=== PATIENT | male | born 1955 | race Caucasian/White ===

== ENCOUNTER 2016-11-05 14:39 | Emergency (ER) | payer MEDICAID, OTHER ==
[2016-11-05] MEDS ORDERED: FAMOTIDINE 20 MG TABLET PO ONE (15:10)
[2016-11-05] MEDS ORDERED: ASPIRIN 81 MG TAB.CHEW PO ONE (15:10)
[2016-11-05 15:34] LABS: Hematocrit 33.7 % (42.0-52.0); Hemoglobin 11.7 gm/dL (13.5-18.0); Mean Cell Volume 93.1 fl (78-100); Mean Corpuscular Hemoglobin 32.3 pg (27-31); Mean Corpuscular Hgb Conc 34.7 g/dl (32-36); Mean Platelet Volume 8.9 fl (6.0-9.5); Neutrophil # 6.6 K/mm3 (1.3-6.0); Neutrophil % 76.4 % (42-75.0); Platelet Count 297 K/mm3 (150-450); Red Blood Count 3.62 M/mm3 (4.7-6.0); Red Cell Distribution Width 11.9 % (11.5-14.0); White Blood Count 8.6 K/mm3 (4.0-10.5)
[2016-11-05 15:40] LABS: INR 0.97 INR (0.90-1.10); Partial Thrombolplastin Time 29.8 Seconds (24-32); Prothrombin Time (Patient) 10.1 Seconds (9.4-11.4)
[2016-11-05 15:47] LABS: ALT 45 U/L (19-67); AST 29 U/L (0-48); Albumin * 3.9 gm/dl (3.4-5.0); Alkaline Phosphatase * 73 U/L (50-170); Anion Gap 15.5 mmol/L (6.8-13.8); BUN/Creatinine Ratio 9.1 (9.0-21.6); Bilirubin, Total 0.7 mg/dL (0.0-1.1); Blood Urea Nitrogen 12 mg/dL (6-23); Ca. Corrected For Albumin 8.6 mg/dL (8.4-10.2); Calcium * 8.8 mg/dL (7.9-10.9); Carbon Dioxide 23.7 mmol/L (24-32.6); Chloride 94 mmol/L (97-106); Glucose * 97 mg/dL (70-110); Potassium 4.2 mmol/L (3.4-4.6); Sodium 129 mmol/L (132-142); Total Protein 7.4 gm/dL (6.2-8.2)
[2016-11-05] MEDS ORDERED: ASPIRIN 81 MG TAB.CHEW ONE (15:47)
[2016-11-05] MEDS ORDERED: FAMOTIDINE 20 MG TABLET ONE (15:47)
--- NOTE | 2016-11-05 15:47 | ERNOTE ---
Chest Pain/Cardiac HPI Date of Service: 11/05/16 Chief Complaint: Chest Pain Time Seen by Provider: 11/05/16 15:05 Source: patient Exam Limitations: no limitations Immunizations: IMMUNIZATION HX Immunizations Up to Date Yes History of Influenza Vaccine No Hx Pneumococcal Vaccination No Allergies/Adverse Reactions: Allergies No Known Allergies Allergy (Unverified 08/20/16 06:43) Home Medications: HOME MEDICATIONS Metoprolol Tartrate [Lopressor] 25 mg PO BID #60 tab 07/13/16 [Last Taken 06:00] Aspirin [Aspirin Enteric Coated] 650 mg PO Q6H PRN 08/06/16 [Last Taken Unknown] oxyCODONE HCL/ACETAMINOPHEN [Percocet 5 MG/325 MG] 1 - 2 tab PO Q4H PRN [Last Taken Unknown] Atenolol [Tenormin] 100 mg PO DAILY 08/20/16 [Last Taken 08/20/16 06:00] Omeprazole 40 mg PO DAILY #20 capsule. 11/05/16 [Last Taken Unknown] Narrative: Patient comes due to upper abdominal pain, L Flank pain, and chest pain. Timing: intermittent Severity/Quality: moderate Location: central, epigastric Chest Pain Radiation: neck, back Activities at Onset: none Modifying Factors - Improves: Present: nothing Modifying Factors - Worsens: Present: nothing Nitro Today/Relief: no nitro taken today Aspirin Treatment Today: no aspirin today Associated Symptoms: Present: abdominal pain. Absent: headache, dizziness, syncope, cough, shortness of breath, diaphoresis, fever/chills, palpitations, heartburn, nausea, vomiting, weakness, back pain, swelling/lump in chest Prior Chest Pain/Cardiac Workup: Denies: prior chest pain, no prior cardiac workup, non-cardiac, angina, heart attack, cardiac cath, echocardiogram, stress test Prior Treatment: Reports: recently seen Review of Systems - Review of Systems Constitutional: Absent: fever, chills, diaphoresis EYE: Present: no symptoms reported ENT: Present: no symptoms reported Respiratory: Absent: shortness of breath, cough, orthopnea Cardiology: Present: chest pain - mid chest area. The pain radiates to neck. Absent: palpitations, syncope Gastrointestinal/Abdominal: Present: abdominal pain - Upper abdomen area. Absent: nausea, vomiting, diarrhea, constipation Genitourinary: Absent: frequency, pain, dysuria, hematuria Musculoskeletal: Present: no symptoms reported Skin: Present: no symptoms reported Neurological: Present: no symptoms reported Endocrine: Present: no symptoms reported Hematologic/Lymphatic: Present: no symptoms reported Psych: Present: no symptoms reported - Patient's Past Medical History Patient History - Medical: No pertinent hx Patient History - Cancer: Melanoma Patient History - Surgical Procedures: Other - Family History Mother Family History - Medical: , No pertinent hx Family History - Cardiac/Respiratory: No pertinent hx - Social History Living Situations: alone Smoking Status: Never smoker Patient requests Smoking Cessation Consult: No Initiate information on Smoking Cessation: No Alcohol Use: heavy Drug Use: none Physical Exam - Physical Exam General Appearance: Present: wd/wn, alert, no apparent distress Eye Exam: Normal inspection: bilateral, PERRL: bilateral, EOMI: bilateral Ears, Nose, Throat: Present: normal ENT inspection, hearing grossly normal, normal pharynx Neck: Present: normal inspection, nontender Respiratory: Present: no respiratory distress, normal breath sounds, no accessory muscle use, chest nontender, lungs clear Cardiovascular/Chest: Present: regular rate, rhythm, normal peripheral pulses. Absent: systolic murmur, diastolic murmur Peripheral Pulses: N=norm/S=strong/W=weak/B=bound/A=absent: Carotid (R): Normal , Carotid (L): Normal, Radial (R): Normal, Radial (L): Normal, Dorsalis-pedis (R ): Normal, Dorsalis-pedis (L): Normal Gastrointestinal/Abdominal: Present: normal bowel sounds, nontender, nondistended, soft, no organomegaly Rectal Exam: Present: nontender, normal rectal tone Male Genitals Exam: Present: normal genitalia, normal prostate, no hernia Back Exam: Present: normal inspection, normal range of motion, no CVA tenderness , no vertebral tenderness Extremity Exam: Present: normal inspection, non-tender, no edema, normal range of motion Neurological Exam: Present: alert, oriented, normal mood/affect, no motor/ sensory deficits Skin Exam: Present: normal color, warm/dry Lymphatic Exam: Present: no adenopathy ED Progress - Date and Time Seen: Date and Time: 11/05/16 16:59 Patient with a CHUYITA Score: 0 Patient at the moment with no distress has no chest pain. Patient with negative Trop and No ST Elevations on EKG. - Results and Orders Patient's Lab Results:: I have reviewed the patient's lab results. Results and Orders: CBS: Anemia CMP: Normal K, and Creat. Patient with mild Na and Cl. -Ruchi/Lip Trop: Negative UA: Negative for blood - Vital Signs Patient's Vital Signs:: I have reviewed the patient's vital signs. Vital Signs: Vital Signs 11/05/16 11/05/16 11/05/16 14:39 15:11 15:14 Temperature 36.8 C Pulse Rate 62 61 60 Respiratory 14 11 L Rate Blood Pressure 127/85 127/85 O2 Sat by Pulse 100 98 Oximetry - EKG EKG: NSR EKG read: Interp. by me EKG Comments: HR: 58, S. Jeffery, No ST Elevation, QT/QTc: < .50. LAD, LVH - X-Ray X-Ray #1 X-Ray: chest X-ray Comments: Radiology Report was noticed: No acute precess reported. - Progress/Reassessment Chief Complaint: Chest Pain Progress:: Re-examined - Transfer of Care Expected Disposition: Discharge Departure - Departure Clinical Impression: Muscle spasm Chest pain Qualifiers: Chest pain type: unspecified Qualified Code(s): R07.9 - Chest pain, unspecified Back pain Qualifiers: Back pain location: low back pain Chronicity: acute Back pain laterality: unspecified Sciatica presence: without sciatica Qualified Code(s): M54.5 - Low back pain Condition: Stable Instructions: Chest Wall Pain, [id number], Back Pain, Adult, Muscle Cramps and Spasms, [id number] Additional Instructions: You can use Tylenol for your pain. Please follow up with your Primary Care Provider. Prescriptions: Omeprazole 40 mg PO DAILY #20 capsule.
[2016-11-05 15:51] LABS: Troponin I Less than 0.017 ng/ml (0.00-0.10)
[2016-11-05 16:40] LABS: Urine Bilirubin 1 mg/dl (NEGATIVE); Urine Blood Negative /ul (NEGATIVE); Urine Ketone 5 mg/dL (NEGATIVE); Urine Nitrite Negative (NEGATIVE); Urine Protein 30 mg/dL (NEGATIVE); Urine Specific Gravity 1.025 SP.GR. (1.005-1.030); Urine Urobilinogen Normal (NORMAL)
[2016-11-05 16:55] LABS: Urine Appearance Clear; Urine Bacteria None Seen; Urine Color Yellow; Urine Hyaline Cast 0-5 /LPF; Urine RBC None Seen /hpf (0-5); Urine WBC None Seen /hpf (0-5)
[2016-11-05 17:17] VITALS: BP 134/83
== END 2016-11-05 17:22 | disposition home or self-care (01) ==
LOC: ER 14:39
DX: M62.838 Other muscle spasm (principal); R07.9 Chest pain, unspecified; M54.5 Low back pain

== ENCOUNTER 2016-12-08 14:06 | Inpatient (IN) | payer OTHER ==
--- OUTSIDE RECORDS SUMMARY | 2016-12-08 14:13 | XMS REPORT | Continuity of Care Document ---
:1955 Author Organization [facility] [place] [address] Care Team Providers Name Role Phone Unavailable Primary Care Provider Unavailable Source Comments This disclosure is being made pursuant to the Qwilr program and maynot contain all information available regarding this patient.[facility] Active Allergies and Adverse Reactions Not on File Current Medications Be aware that medications may not be up to date as of this document. Alwaysverify current medications with the patient. Not on file Active Problems Not on file Social History Tobacco Use Types Packs/Day Years Used Date Never Assessed Plan of Care Health Maintenance Due Date Last Done Comments Retired-Pertussis Vaccine Adult 1976 Retired-Tetanus Vaccine Adult 1976 Colonoscopy 2007 Well Adult Visit 2007 Retired-INFLUENZA VACCINE 06/17/2015 Results from Last 3 Months Not on file
--- OUTSIDE RECORDS SUMMARY | 2016-12-08 14:13 | XMS REPORT | Continuity of Care Document ---
:1955 Demographics Phone Unavailable Preferred Language Unknown Marital Status Unknown Christianity Affiliation Unknown Race Unknown Ethnic Group Unknown Author Organization [facility] ([facility]) [place] [address] Phone [phone] Care Team Providers Name Role Phone Unavailable Primary Care Provider Unavailable Source Comments This disclosure is being made pursuant to the Care Everywhere program, applicable federal and state laws, and may not contain all informaitonavailable regarding this patient.[facility] ([facility]) Active Allergies and Adverse Reactions Not on File Current Medications Not on file Active Problems Not on file Social History Tobacco Use Types Packs/Day Years Used Date Never Assessed Plan of Care Health Maintenance Due Date Last Done Comments HCV Screening 1955 Hepatitis B Vaccine (1 of 3 - Primary Series) 1955 Tdap Vaccine 1968 Lipid Disorder Screening 1975 MMR Vaccine 1975 Td Vaccine 1975 Colonoscopy 2007 Prostate Cancer Screening 2007 Influenza Vaccine: Seasonal (#1) 05/17/2016 Results from Last 3 Months Not on file
[2016-12-08] MEDS ORDERED: ENOXAPARIN SODIUM 40 MG/0.4 ML SYRG SC SCH (14:45)
[2016-12-08] MEDS ORDERED: DIATRIZOATE MEGLU/DIATRIZO SOD 30 ML BTL PO ONE (15:29)
[2016-12-08 15:33] LABS: Hematocrit 31.6 % (42.0-52.0); Hemoglobin 11.2 gm/dL (13.5-18.0); Mean Cell Volume 91.1 fl (78-100); Mean Corpuscular Hemoglobin 32.3 pg (27-31); Mean Corpuscular Hgb Conc 35.4 g/dl (32-36); Mean Platelet Volume 8.7 fl (6.0-9.5); Neutrophil # 4.5 K/mm3 (1.3-6.0); Neutrophil % 69.2 % (42-75.0); Platelet Count 289 K/mm3 (150-450); Red Blood Count 3.47 M/mm3 (4.7-6.0); White Blood Count 6.5 K/mm3 (4.0-10.5)
[2016-12-08] MEDS: POTASSIUM CHLORIDE 20 MEQ in DEXTROSE 5%-NORMAL SALINE 990 ML IV SCH (15:38)
[2016-12-08 15:51] LABS: Albumin * 3.7 gm/dl (3.4-5.0); BUN/Creatinine Ratio 17.3 (9.0-21.6); Bilirubin, Total 0.4 mg/dL (0.0-1.1); Ca. Corrected For Albumin 8.5 mg/dL (8.4-10.2); Calcium * 8.6 mg/dL (7.9-10.9); Carbon Dioxide 29.9 mmol/L (24-32.6); Potassium 3.9 mmol/L (3.4-4.6); Total Protein 7.1 gm/dL (6.2-8.2)
[2016-12-08] MEDS ORDERED: PROMETHAZINE HCL 25 MG in DEXTROSE 5 % IN WATER 50 ML IV PRN ×2 (17:12)
[2016-12-08] MEDS: PANTOPRAZOLE SODIUM 40 MG in NORMAL SALINE 100 ML IV SCH (19:59)
[2016-12-08] MEDS: HYDROmorphone HCL 1 MG/ML DISP.SYRIN IV PRN (21:04)
--- NOTE | 2016-12-08 21:05 | HP ---
Chief Complaint - Chief Complaint Date of Service: 12/08/16 Time of Service: 20:53 Chief Complaint: Abdominal pain History of Present Illness: This is a 61 y/o man who has had waxing and waning abdominal pain for 3-4 weeks. It has been worsening. At the beginning, he had constipation and took laxitives. Since then, he has had diarrhea. Three days last week he vomited, one day twice, a second day twice, and a third day once. No hematemesis, hematochezia or melena. The pain is about 7/10 at the present time. He is also suffering hiccoughs. Because of these symptoms, he went to the [facility] clinic in [place], [place] and saw Dr. Valdovinos today. Because I was cathodic protection technician today, she contacted me, and I arranged his admission to [facility] for what she felt was a small bowel obstruction. His CT scan of the abdomen and pelvis today shows a partial but high grade small bowel obstruction with dilated loops of small bowel , ascites, a modest amount, a large cystic lesion in the tail of the pancreas and multiple lesions in the liver which look like metastases. - Patient's Past Medical History Patient History - Medical: No pertinent hx Patient History - Cardiac/Respiratory: Hypertension Patient History - Cancer: Melanoma Patient History - Surgical Procedures: Other - rotator cuff surgery recently, left shoulder, Dr. Marc, injured his shoulder at home June,. Amputation right little finger, knee scope, cut tendon in thumb Patient History - Other: None - Family History Mother Family History - Medical: , No pertinent hx Family History - Cardiac/Respiratory: No pertinent hx Family History - Cancer: Melanoma Father Family History - Medical: Diabetes Type 2 Family History - Cardiac/Respiratory: Hypertension Family History - Cancer: No pertinent family hx - Social History Living Situations: alone Abuse History: No History of abuse Psych History: No pertinent hx Smoking Status: Never smoker Have you smoked in the past 12 months: No Do you dip or chew tobacco: No Alcohol Use: heavy Drug Use: none - Immunizations Immunizations Up to Date: Yes Hx Pneumococcal Vaccination: No History of Influenza Vaccine: No Review Of Systems (GEN) - Review of Systems Generalized/Overall Review: Present: No Symptoms Reported EENTM: Present: Other - 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 Respiratory: Present: No Symptoms Reported Cardiac: Present: No Symptoms Reported Abdominal: Present: Nausea, Vomiting, Abdominal Pain, Constipation, Diarrhea Genitourinary: Present: No Symptoms Reported Musculoskeletal: Present: Joint Pain - left shoulder, Back Pain Neurological: Present: No Symptoms Reported Skin: Present: No Symptoms Reported Endocrine: Present: No Symptoms Reported Misc: All systems neg except as marked Immunizations: IMMUNIZATION HX Immunizations Up to Date Yes History of Influenza Vaccine No Hx Pneumococcal Vaccination No Allergies/Adverse Reactions: Allergies Allergy/AdvReac Type Severity Reaction Status Date / Time No Known Allergies Allergy Verified 12/08/16 14:43 Home Medications: HOME MEDICATIONS Aspirin [Aspirin Enteric Coated] 650 mg PO Q6H PRN 08/06/16 [Last Taken Unknown] Atenolol [Tenormin] 100 mg PO DAILY 08/20/16 [Last Taken 12/08/16] Amlodipine Besylate 10 mg PO DAILY 12/08/16 [Last Taken 12/08/16] Exam - Exam Vital Signs: Vital Signs - Last Taken Selected Entries 12/08/16 20:55 Temperature 36.9 C Temperature Oral Source Pulse Rate 64 Respiratory 20 Rate Blood Pressure 148/88 Blood Pressure Supine Position O2 Sat by Pulse 98 Oximetry Oxygen Delivery Room Air Method Constitutional: Present: Alert, Oriented x3, Cooperative, Well developed, Well nourished, No distress ENT Exam: Present: normal ENT inspection, pharynx normal, TMs normal, hard of hearing - hearing aid right ear Eye Exam: bilateral eye: normal inspection, PERRL, EOMI Neck: Present: normal inspection Back Exam: Present: normal inspection, no CVA tenderness, no vertebral tenderness Respiratory: Present: lungs clear, no respiratory distress Cardiovascular/Chest: Present: regular rate, rhythm, no murmur Abdomen: Present: Normal bowel sounds, soft, no rebound tenderness, no hepatospenomegaly, no masses, tender, distended Extremity: Present: normal range of motion, non-tender, normal inspection, no pedal edema Skin Exam: Present: normal color, warm/dry, no cyanosis Lymphatic: Present: no adenopathy Neurologic: Present: alert, oriented x 3 Appearance: Present: appropriate appearance, appropriate insight, neat, no memory impairment Eye contact: Present: cooperative, good eye contact, normal speech Thoughts: Present: normal thought pattern Diagnostic Studies: Abnormal Lab Results 12/08/16 12/08/16 Range/Units 15:25 15:25 RBC 3.47 L (4.7-6.0) M/mm3 Hgb 11.2 L (13.5-18.0) gm/dL Hct 31.6 L (42.0-52.0) % MCH 32.3 H (27-31) pg Lymphocytes % 15.6 L (20-51) % Monocytes % 13.6 H (0.0-9) % Lymphocytes # 1.0 L (1.5-3.5) k/mm3 Sodium 129 L (132-142) mmol/L Plasma Sodium 129 L (130-142) mmol/L Chloride 92 L (97-106) mmol/L BUN 24 H D (6-23) mg/dL Est GFR (Non-Af Amer) 56 L (60-130) mL/min Random Glucose 131 H (70-110) mg/dL Amylase 22 L (25-115) U/L Lipase 607 H (73-393) U/L Laboratory Results WBC 6.5 K/mm3 (4.0-10.5) 12/08/16 15:25 RBC 3.47 M/mm3 (4.7-6.0) L 12/08/16 15:25 Hgb 11.2 gm/dL (13.5-18.0) L 12/08/16 15:25 Hct 31.6 % (42.0-52.0) L 12/08/16 15:25 MCV 91.1 fl (78-100) 12/08/16 15:25 MCH 32.3 pg (27-31) H 12/08/16 15:25 MCHC 35.4 g/dl (32-36) 12/08/16 15:25 RDW 12.0 % (11.5-14.0) 12/08/16 15:25 Plt Count 289 K/mm3 (150-450) 12/08/16 15:25 MPV 8.7 fl (6.0-9.5) 12/08/16 15:25 Immature Gran % (Auto) 0.30 % (0.001-0.429) 12/08/16 15:25 Immature Gran # (Auto) 0.02 K/mm3 (0.000-0.0310) 12/08/16 15:25 Neutrophils % 69.2 % (42-75.0) 12/08/16 15:25 Lymphocytes % 15.6 % (20-51) L 12/08/16 15:25 Monocytes % 13.6 % (0.0-9) H 12/08/16 15:25 Eosinophils % 0.8 % (0.0-3.0) 12/08/16 15:25 Basophils % 0.5 % (0.0-1.0) 12/08/16 15:25 Nucleated RBC % 0.0 k/mm3 (0-1) 12/08/16 15:25 Neutrophils # 4.5 K/mm3 (1.3-6.0) 12/08/16 15:25 Lymphocytes # 1.0 k/mm3 (1.5-3.5) L 12/08/16 15:25 Monocytes # 0.9 k/mm3 (0.0-1.0) 12/08/16 15:25 Eosinophils # 0.1 k/mm3 (0.0-0.7) 12/08/16 15:25 Absolute Basophils 0.0 k/mm3 (0.0-0.1) 12/08/16 15:25 Sodium 129 mmol/L (132-142) L 12/08/16 15:25 Plasma Sodium 129 mmol/L (130-142) L 12/08/16 15:25 Potassium 3.9 mmol/L (3.4-4.6) 12/08/16 15:25 Chloride 92 mmol/L (97-106) L 12/08/16 15:25 Carbon Dioxide 29.9 mmol/L (24-32.6) 12/08/16 15:25 Anion Gap 11.0 mmol/L (6.8-13.8) 12/08/16 15:25 BUN 24 mg/dL (6-23) H D 12/08/16 15:25 Creatinine 1.39 mg/dL (0.4-1.4) 12/08/16 15:25 Est GFR (Non-Af Amer) 56 mL/min (60-130) L 12/08/16 15:25 BUN/Creatinine Ratio 17.3 (9.0-21.6) 12/08/16 15:25 Random Glucose 131 mg/dL (70-110) H 12/08/16 15:25 Calcium 8.6 mg/dL (7.9-10.9) 12/08/16 15:25 Calcium Adj for Albumin 8.5 mg/dL (8.4-10.2) 12/08/16 15:25 Total Bilirubin 0.4 mg/dL (0.0-1.1) 12/08/16 15:25 AST 33 U/L (0-48) 12/08/16 15:25 ALT 38 U/L (19-67) 12/08/16 15:25 Alkaline Phosphatase 157 U/L (50-170) 12/08/16 15:25 Troponin I Less than 0.017 ng/ml (0.00-0.10) 12/08/16 19:25 Total Protein 7.1 gm/dL (6.2-8.2) 12/08/16 15:25 Albumin 3.7 gm/dl (3.4-5.0) 12/08/16 15:25 Amylase 22 U/L (25-115) L 12/08/16 15:25 Lipase 607 U/L (73-393) H 12/08/16 15:25 Assessment/Plan - Narrative Narrative: NPO. IV fluids. Symptom control. Labs in AM. Discussed with patient. Tomorrow will discuss probable transfer to the [facility]. Estimated stay here, one midnight. - Assessment/Plan (1) Primary pancreatic cancer with metastasis to other site Problem: Suspected (2) Partial small bowel obstruction Problem: Acute (3) Back pain Problem: Chronic Qualifiers: Back pain location: low back pain Chronicity: chronic Back pain laterality: midline Sciatica presence: without sciatica Qualified Code(s): M54.5 - Low back pain; G89.29 - Other chronic pain (4) Hypertension Problem: Chronic Qualifiers: Hypertension type: essential hypertension Qualified Code(s): I10 - Essential (primary) hypertension
[2016-12-08 21:09] LABS: Urine Bilirubin Negative (NEGATIVE); Urine Blood Negative /ul (NEGATIVE); Urine Ketone Negative (NEGATIVE); Urine Nitrite Negative (NEGATIVE); Urine Protein Negative (NEGATIVE); Urine Urobilinogen Normal (NORMAL)
[2016-12-08 21:30] LABS: Urine Appearance Clear; Urine Bacteria None Seen; Urine Color Yellow; Urine RBC None Seen /hpf (0-5); Urine WBC None Seen /hpf (0-5)
[2016-12-08] MEDS ORDERED: CALCIUM CARBONATE 500 MG TAB.CHEW ONE (21:30)
[2016-12-08] MEDS: CALCIUM CARBONATE 500 MG TAB.CHEW PO PRN (21:31)
[2016-12-09] MEDS: HYDROmorphone HCL 1 MG/ML DISP.SYRIN IV PRN ×3 (01:34→12:08)
[2016-12-09] MEDS: CALCIUM CARBONATE 500 MG TAB.CHEW PO PRN (01:38)
[2016-12-09] MEDS: POTASSIUM CHLORIDE 20 MEQ in DEXTROSE 5%-NORMAL SALINE 990 ML IV SCH ×2 (01:51→07:00)
[2016-12-09 06:18] LABS: Hematocrit 32.2 % (42.0-52.0); Hemoglobin 11.1 gm/dL (13.5-18.0); Mean Cell Volume 92.8 fl (78-100); Mean Corpuscular Hgb Conc 34.5 g/dl (32-36); Mean Platelet Volume 8.8 fl (6.0-9.5); Neutrophil % 67.3 % (42-75.0); Platelet Count 261 K/mm3 (150-450); Red Blood Count 3.47 M/mm3 (4.7-6.0); Red Cell Distribution Width 12.1 % (11.5-14.0)
[2016-12-09 06:35] LABS: Albumin * 3.2 gm/dl (3.4-5.0); Anion Gap 10.1 mmol/L (6.8-13.8); BUN/Creatinine Ratio 14.2 (9.0-21.6); Bilirubin, Total 0.4 mg/dL (0.0-1.1); Ca. Corrected For Albumin 8.5 mg/dL (8.4-10.2); Calcium * 8.2 mg/dL (7.9-10.9); Carbon Dioxide 26.6 mmol/L (24-32.6); Potassium 3.7 mmol/L (3.4-4.6); Total Protein 6.6 gm/dL (6.2-8.2)
[2016-12-09 07:37] VITALS: BP 149/87
[2016-12-09] MEDS: PANTOPRAZOLE SODIUM 40 MG in NORMAL SALINE 100 ML IV SCH (07:39)
[2016-12-09] MEDS ORDERED: amLODIPine BESYLATE 10 MG TABLET PO SCH (09:00)
[2016-12-09] MEDS ORDERED: ATENOLOL 100 MG TABLET PO SCH (09:00)
--- NOTE | 2016-12-09 17:29 | DS ---
(1) Primary pancreatic cancer with metastasis to other site Problem: Suspected (2) Partial small bowel obstruction Problem: Acute (3) Back pain Problem: Chronic Qualifiers: Back pain location: low back pain Chronicity: chronic Back pain laterality: midline Sciatica presence: without sciatica Qualified Code(s): M54.5 - Low back pain; G89.29 - Other chronic pain (4) Hypertension Problem: Chronic Qualifiers: Hypertension type: essential hypertension Qualified Code(s): I10 - Essential (primary) hypertension Description of Stay: The patient was initially treated with NPO status, IV fluids and meds for pain and nausea. NG tube was not required. By the day of discharge, his pain and nausea were vastly better. He remained medically stable. On the day of admission I began talking with him about the results of his abdominopelvic CAT scan. Today I spoke with him some more, and explained he probably had cancer in the tail of his pancreas, metastatic to liver, causing his small bowel obstruction and causing the ascites. I discussed with him further evaluation, which would require transfer to a higher level of care. We intially tried [facility] in [place], but it turns out they were not set up with a order takers supervisor and some of the equipment needed. He agreed to then be transferred to the [facility], which I then personally arranged. Procedures Performed: none Discharge Disposition: [facility] Disposition: [facility] Condition: Good Discharge Activity: Activity as tolerated Discharge Diet: NPO Problem Oriented Discharge Instructions to Patient/Family: Small Bowel Obstruction, Gnsl-[id number] Complete Home Medications List: Complete Home Medication List: Aspirin [Aspirin Enteric Coated] 650 mg PO Q6H PRN 08/06/16 Atenolol [Tenormin] 100 mg PO DAILY 08/20/16 Amlodipine Besylate 10 mg PO DAILY 12/08/16
== END 2016-12-09 14:23 | disposition short-term general hospital (02) | DRG 389 ==
LOC: MS 14:06
PROVIDERS: ADMIT Allergy & Immunology; ATTEND Allergy & Immunology
DX: K56.60 Unspecified intestinal obstruction (principal); C25.2 Malignant neoplasm of tail of pancreas; C78.7 Secondary malignant neoplasm of liver and intrahepatic bile duct; R18.8 Other ascites; R06.6 Hiccough; F10.10 Alcohol abuse, uncomplicated; I10 Essential (primary) hypertension; Z79.82 Long term (current) use of aspirin